=== PATIENT | female | born 1935 | race Caucasian/White ===

== ENCOUNTER 2019-01-27 18:53 | Emergency (ER) | payer MEDICARE ==
--- OUTSIDE RECORDS SUMMARY | 2019-01-27 19:02 | XMS REPORT | Continuity of Care Document ---
:1935 External Reference #:[id number] Author Name Jose Walters, OD Address [address] [place] [address] Care Team Providers Name Role Phone Tiffany Hernandez MD Care Team Information Full Stack Php Developer Unavailable Problems Active Problems Provider Date After-cataract with vision obscured following Cordell Sewell M.D. Onset: 07/2014 extraction of cataract Lens Replaced By Other Means Cordell Sewell M.D. Onset: 02/14/2014 Vitreous degeneration Cordell Sewell M.D. Onset: 09/06/2013 Nonexudative age-related macular degeneration Cordell Sewell M.D. Onset: Social History Type Date Description Comments Sex Unknown ETOH Use Denies alcohol use Tobacco Use Start: Unknown Patient has never smoked Smoking Status Reviewed: 12/15/18 Patient has never smoked Allergies, Adverse Reactions, Alerts Active Allergies Reaction Severity Comments Date Epinephrine 09/06/2013 Lidocaine 09/06/2013 Seasonal 09/06/2013 Dogs 09/06/2013 Cats 09/06/2013 Mold 09/06/2013 Medications Active Medications SIG Qnty Indications Ordering Date Provider Olopatadine HCL Place 1 Drop 2.5units Jose Walters, 11/30/2017 0.2% Into Both Eyes OD Solution Every Day Ocusoft Lid Scrub apply to outer 30units Jose Walters, 12/31/2016 Plus eyelids twice a OD Pads day both eyes Preservision Areds 2 Cordell Sewell, 09/06/2013 Rajwinder Areds 2 Capsules Tapazole Unknown Tablets Hydralazine HCL Unknown Tablets Multi Unknown Vitamin/Minerals Full Spectrum Tablets Fiber Unknown Capsules Astepro Unknown 0.15% Solution Alvesco Unknown Aerosol Xopenex HFA Unknown 45mcg/Act Aerosol Simvastatin Unknown Tablets Lexapro Unknown Tablets Aspirin Unknown Tablets Triamterene/Hydrochlo Unknown rothiazide Tablets Norvasc Unknown Tablets Lopressor Unknown Tablets Tekturna Unknown Tablets Immunizations Description No Information Available Vital Signs Date Vital Result Comment 06/14/2018 4:05pm Intraocular Pressure Right Eye 16 mmHg Intraocular Pressure Left Eye 16 mmHg 12/14/2017 3:27pm Intraocular Pressure Right Eye 17 mmHg Intraocular Pressure Left Eye 17 mmHg Results Description No Information Available Procedures Date Code Description Status 12/15/2018 70212 Oct Retina Completed 12/15/2018 37601 Eye Exam Est Intermediate Completed Medical Devices Description No Information Available Encounters Description No Information Available Assessments Date Code Description Provider 12/15/2018 H35.3132 Nonexudative age-related macular degeneration, Jose Walters, OD bilateral, in Plan of Treatment Future Appointment(s):06/15/2019 1:30 pm - Jose Walters OD at [id number] - Jose Walters, ODH35.3132 Nonexudative age-related macular degeneration, bilateral, inFollow up:6 mos full, sooner PRN Functional Status Description No Information Available Mental Status Description No Information Available Referrals Description No Information Available
--- OUTSIDE RECORDS SUMMARY | 2019-01-27 19:02 | XMS REPORT | Continuity of Care Document ---
:1935 External Reference #:[id number] Author Name Jose Walters, OD Address [address] [place] [address] Care Team Providers Name Role Phone Tiffany Hernandez MD Care Team Information Soc Analyst Unavailable Problems Active Problems Provider Date After-cataract [...] mmHg Results Description No Information Available Procedures Description No Information Available Medical Devices Description No Information Available Encounters Description No Information Available Assessments Date Code Description Provider 12/15/2018 H35.3132 Nonexudative age-related macular degeneration, Jose Walters, OD bilateral, in Plan of Treatment 12/15/2018 - Jose Walters, ODH35.3132 Nonexudative age-related macular degeneration, bilateral, inFollow up:6 mos full, sooner PRN Functional Status Description No Information Available Mental Status Description No Information Available Referrals Description No Information Available
--- OUTSIDE RECORDS SUMMARY | 2019-01-27 19:03 | XMS REPORT | Continuity of Care Document ---
:1935 External Reference #:[id number] Author Name SNEHAL Herman (transmitted by agent of provider Booker Le) Address [address] [place] [address] Care Team Providers Name Role Phone Hitesh Schneider M.D. - Family Medicine Care Team Information Follow Up Clerk Tiffany Hernandez MD Care Team Information Follow Up Clerk [phone] Problems Active Problems Provider Date Gastroesophageal reflux disease Iggy Moody M.D. Onset: 04/24/2016 Body mass index 20-24 - normal Iggy Moody M.D. Onset: 04/24/2016 Body mass index 20-24 - normal Iggy Moody M.D. Onset: 12/26/2015 Chronic obstructive lung disease Iggy Moody M.D. Onset: 12/26/2015 Mild persistent asthma Iggy Moody M.D. Onset: 12/26/2015 Moderate persistent asthma, uncomplicated Booker Le M.D. Onset: 11/27/2014 Body mass index (BMI) 24.0-24.9, adult Booker Le M.D. Onset: 11/27/2014 Measles vaccination requested Booker Le M.D. Onset: 11/27/2014 Allergic asthma without status asthmaticus Everton Wilson M.D. Onset: 12/2012 Allergic rhinitis Everton Wilson M.D. Onset: 10/20/2012 Allergic rhinitis due to pollen Everton Wilson M.D. Onset: 10/20/2012 Allergic rhinitis due to pollen Allergy Injection Onset: 11/10/2014 Allergic rhinitis Allergy Injection Onset: 11/10/2014 Allergic rhinitis due to animals Allergy Injection Onset: 11/10/2014 Allergic rhinitis Allergy Injection Onset: 11/10/2014 Social History Type Date Description Comments Sex Unknown Tobacco Use Start: Unknown Patient has never smoked Allergies, Adverse Reactions, Alerts Active Allergies Reaction Severity Comments Date Epinephrine tachycardic 11/28/2013 Flu Virus Vaccine Moderate 11/27/2014 Eggs Moderate 11/27/2014 Tamiflu GI issues 05/17/2018 Medications Active Medications SIG Qnty Indications Ordering Date Provider Spiriva Respimat take 2 puffs every 12gm J30.89 Carmelina Redmond, 12/26/2015 day Rajwinder 2.5mcg/Act Aerosol Alvesco Take 1 puff Twice 18.3units J30.1 Iggy Nunez 10/20/2012 160mcg/Act A Day Rajwinder Moody Aerosol Xopenex HFA 2 inhalations 1units Yvonne every 4 hours as SNEHAL Rodriguez 45mcg/Act Aerosol needed Tekturna HCT Unknown 300-12.5mg Tablets Lopressor Unknown 50mg Tablets Norvasc Unknown 10mg Tablets Simvastatin Unknown 10mg Tablets Lexapro Unknown 20mg Tablets Senior Multivitamin 1 po qd Unknown Tablets Aspir-[address] Calcium 600 Unknown [id number] Tablets Fiber Unknown 625mg Tablets Hydralazine HCL Take 1 Tablet By Unknown Mouth Twice A Day 25mg Tablets Methimazole Unknown 10mg Tablets Preservision Areds Unknown Capsules Fish Oil + D3 Unknown [id number] Capsules Medications Administered in Office Medication SIG Qnty Indications Ordering Provider Date Injection Allergy Injection 11/29/2018 Injection Injection Allergy Injection 11/04/2018 Injection Injection Allergy Injection 10/07/2018 Injection Injection Allergy Injection 09/09/2018 Injection Injection Allergy Injection 08/19/2018 Injection Injection Allergy Injection 07/22/2018 Injection Injection Allergy Injection 06/24/2018 Injection Injection Allergy Injection 06/10/2018 Injection Injection Allergy Injection 05/27/2018 Injection Injection Allergy Injection 05/17/2018 Injection Injection Allergy Injection 04/15/2018 Injection Injection Allergy Injection 03/18/2018 Injection Injection Allergy Injection 02/18/2018 Injection Injection Allergy Injection 01/21/2018 Injection Injection Allergy Injection 12/24/2017 Injection Injection Allergy Injection 12/03/2017 Injection Injection Allergy Injection 11/16/2017 Injection Injection Allergy Injection 10/29/2017 Injection Injection Allergy Injection 10/15/2017 Injection Injection Allergy Injection 10/01/2017 Injection Injection Allergy Injection 09/17/2017 Injection Injection Allergy Injection 09/03/2017 Injection Injection Allergy Injection 08/20/2017 Injection Injection Allergy Injection 08/07/2017 Injection Injection Allergy Injection 07/23/2017 Injection Injection Allergy Injection 07/02/2017 Injection Injection Allergy Injection 06/18/2017 Injection Injection Allergy Injection 06/04/2017 Injection Injection Allergy Injection 05/21/2017 Injection Injection Allergy Injection 04/30/2017 Injection Injection Allergy Injection 04/16/2017 Injection Injection Allergy Injection 03/26/2017 Injection Injection Allergy Injection 03/05/2017 Injection Injection Allergy Injection 02/12/2017 Injection Injection Allergy Injection 01/22/2017 Injection Injection Allergy Injection 12/11/2016 Injection Injection Allergy Injection 11/13/2016 Injection Injection Allergy Injection 10/23/2016 Injection Injection Lotus Darden M.D. 10/02/2016 Injection Injection Allergy Injection 10/02/2016 Injection Injection Allergy Injection 09/10/2016 Injection Injection Allergy Injection 08/21/2016 Injection Injection Allergy Injection 08/07/2016 Injection Injection Allergy Injection 07/17/2016 Injection Injection Allergy Injection 06/26/2016 Injection Injection Allergy Injection 06/12/2016 Injection Injection Allergy Injection 05/29/2016 Injection Injection Allergy Injection 05/21/2016 Injection Injection Allergy Injection 05/12/2016 Injection Injection Allergy Injection 04/10/2016 Injection Injection Allergy Injection 03/13/2016 Injection Injection Allergy Injection 02/28/2016 Injection Injection Allergy Injection 02/14/2016 Injection Injection Allergy Injection 01/24/2016 Injection Injection Allergy Injection 01/10/2016 Injection Injection Allergy Injection 12/26/2015 Injection Injection Allergy Injection 12/05/2015 Injection Injection Lotus Darden M.D. 10/24/2015 Injection Injection Allergy Injection 10/24/2015 Injection Injection Allergy Injection 09/12/2015 Injection Injection Allergy Injection 08/29/2015 Injection Injection Allergy Injection 08/08/2015 Injection Injection Allergy Injection 07/23/2015 Injection Injection Allergy Injection 07/06/2015 Injection Injection Allergy Injection 06/22/2015 Injection Injection Allergy Injection 06/06/2015 Injection Injection Allergy Injection 05/23/2015 Injection Injection Allergy Injection 05/09/2015 Injection Injection Allergy Injection 04/11/2015 Injection Injection Allergy Injection 03/14/2015 Injection Injection Allergy Injection 02/14/2015 Injection Injection Allergy Injection 01/12/2015 Injection Injection Allergy Injection 12/15/2014 Injection Injection Allergy Injection 11/27/2014 Injection Injection Allergy Injection 11/10/2014 Injection Injection Allergy Injection 10/20/2014 Injection Injection Allergy Injection 10/06/2014 Injection Injection Allergy Injection 09/22/2014 Injection Injection Allergy Injection 08/25/2014 Injection Injection Allergy Injection 08/07/2014 Injection Injection Allergy Injection 07/12/2014 Injection Injection Allergy Injection 06/30/2014 Injection Injection Allergy Injection 06/12/2014 Injection Injection Allergy Injection 05/29/2014 Injection Injection Allergy Injection 05/15/2014 Injection Injection Allergy Injection 04/05/2014 Injection Injection Allergy Injection 03/08/2014 Injection Injection Allergy Injection 02/06/2014 Injection Injection Allergy Injection 01/09/2014 Injection Injection Allergy Injection 12/12/2013 Injection Injection Allergy Injection 11/28/2013 Injection Injection Allergy Injection 11/11/2013 Injection Injection Allergy Injection 10/28/2013 Injection Injection Allergy Injection 10/14/2013 Injection Injection Allergy Injection 09/30/2013 Injection Injection Allergy Injection 09/16/2013 Injection Injection Allergy Injection 08/31/2013 Injection Injection Allergy Injection 08/10/2013 Injection Injection Allergy Injection 07/27/2013 Injection Injection Allergy Injection 07/13/2013 Injection Injection Allergy Injection 06/29/2013 Injection Injection Allergy Injection 06/13/2013 Injection Injection Allergy Injection 05/30/2013 Injection Injection Allergy Injection 04/22/2013 Injection Injection Allergy Injection 03/25/2013 Injection Injection Allergy Injection 03/04/2013 Injection Injection Allergy Injection 02/18/2013 Injection Injection Allergy Injection 01/28/2013 Injection Injection Allergy Injection 01/17/2013 Injection Injection Allergy Injection 01/03/2013 Injection Injection Allergy Injection 12/20/2012 Injection Injection Allergy Injection 11/26/2012 Injection Injection Allergy Injection 11/05/2012 Injection Celestdevin/Alla Wilson M.D. 10/20/2012 [id number] 1 cc Injection Injection Allergy Injection 10/20/2012 Injection Injection Allergy Injection 10/08/2012 Injection Injection Allergy Injection 09/24/2012 Injection Injection Allergy Injection 09/13/2012 Injection Injection Allergy Injection 08/11/2012 Injection Injection Allergy Injection 07/21/2012 Injection Injection Allergy Injection 07/07/2012 Injection Injection Allergy Injection 06/23/2012 Injection Injection Allergy Injection 06/09/2012 Injection Injection Allergy Injection 05/26/2012 Injection Injection Everton Katie, Rajwinder 04/09/2012 Injection Injection Everton Katie, Rajwinder 03/26/2012 Injection Injection Everton Katie, Rajwinder 03/12/2012 Injection Injection Everton Katie, Tere.DFranci 02/27/2012 Injection Injection Everton Katie, Tere.DFranci 02/09/2012 Injection Injection Everton Katie, Rajwinder 01/21/2012 Injection Injection Everton Katie, Rajwinder 01/05/2012 Injection Injection Everton Katie, Tere.Joshua 12/19/2011 Injection Injection Everton Katie, Rajwinder 12/05/2011 Injection Injection Everton Katie, Rajwinder 11/21/2011 Injection Injection Everton Katie, Rajwinder 10/31/2011 Injection Injection Everton Katie, SusanDFranci 10/20/2011 Injection Injection Everton Katie, Rajwinder 10/06/2011 Injection Injection Everton Katie, Rajwinder 09/22/2011 Injection Injection Everton Katie, Rajwinder 09/08/2011 Injection Injection Everton Katie, Rajwinder 08/15/2011 Injection Injection Everton Katie, Rajwinder 07/30/2011 Injection Injection Everton Katie, Rajwinder 07/16/2011 Injection Injection Everton Katie, Tere.DFranci 06/11/2011 Injection Injection Everton Katie, SusanDFranci 05/28/2011 Injection Injection Everton Katie, MFranciDFranci 05/14/2011 Injection Injection Everton Katie, M.DFranci 02/26/2011 Injection Injection Everton Katie, Rajwinder 02/19/2011 Injection Injection Everton Katie, Rajwinder 02/12/2011 Injection Injection Everton Katie, MRach 02/05/2011 Injection Injection Everton Katie, M.DFranci 01/22/2011 Injection Injection Everton Katie, M.DFranci 01/08/2011 Injection Injection Everton Katie, M.DFranci 12/25/2010 Injection Injection Everton Katie, M.DFranci 12/20/2010 Injection Injection Everton Katie, M.DFranci 12/13/2010 Injection Injection Everton Katie, M.DFranci 12/06/2010 Injection Injection Everton Katie, M.DFranci 11/29/2010 Injection Injection Everton Katie, M.DFranci 11/22/2010 Injection Injection Everton Katie, M.DFranci 11/15/2010 Injection Injection Everton Katie, M.DFranci 10/30/2010 Injection Injection Everton Aktie, M.DFranci 10/23/2010 Injection Injection Everton Katie, M.DFranci 10/16/2010 Injection Injection Everton Katie, M.DFranci 10/09/2010 Injection Injection Everton Katie, M.DFranci 10/02/2010 Injection Injection Everton Katie, M.DFranci 09/25/2010 Injection Injection Everton Katie, M.DFranci 09/18/2010 Injection Injection Everton Katie, M.DFranci 09/11/2010 Injection Injection Everton Katie, M.DFranci 09/02/2010 Injection Injection Everton Katie, M.DFranci 08/23/2010 Injection Injection Everton Katie, M.DFranci 08/14/2010 Injection Injection Everton Katie, M.DFranci 08/07/2010 Injection Injection Everton Katie, M.DFranci 08/02/2010 Injection Injection Everton Katie, M.DFranci 07/26/2010 Injection Injection Everton Katie, M.DFranci 07/19/2010 Injection Injection Everton Katie, M.DFranci 07/10/2010 Injection Injection Everton Katie, M.DFranci 02/18/2010 Injection Injection Everton Katie, M.DFranci 01/21/2010 Injection Injection Everton Katie, M.DFranci 12/24/2009 Injection Injection Everton Katie, M.DFranci 11/26/2009 Injection Injection Everton Katie, M.DFranci 11/14/2009 Injection Injection Everton Katie, M.DFranci 10/31/2009 Injection Injection Everton Katie, M.DFranic 10/17/2009 Injection Injection Everton Katie, M.DFranci 10/05/2009 Injection Injection Everton Katie, M.DFranci 09/21/2009 Injection Injection Everton Katie, M.DFranci 09/07/2009 Injection Injection Everton Katie, M.DFranci 08/20/2009 Injection Injection Everton Katie, M.DFranci 08/06/2009 Injection Injection Everton Katie, M.DFranci 07/16/2009 Injection Injection Everton Katie, M.DFranci 06/29/2009 Injection Injection Everton Katie, M.DFranci 06/18/2009 Injection Injection Everton Katie, M.DFranci 06/04/2009 Injection Injection Everton Katie, M.DFranci 05/21/2009 Injection Injection Everton Katie, SusanDFranci 04/23/2009 Injection Injection Everton Katie, SusanDFranci 03/26/2009 Injection Injection Rafael Rodriguez, Rajwinder 03/05/2009 Injection Injection Everton Katie, M.DFranci 02/12/2009 Injection Injection Everton Katie, M.DFranci 01/24/2009 Injection Injection Everton Katie, M.DFranci 01/10/2009 Injection Injection Everton Katie, M.DFranci 12/27/2008 Injection Injection Everton Ktaie, M.DFranci 12/13/2008 Injection Injection Everton Katie, M.DFranci 11/22/2008 Injection Injection Everton Katie, M.DFranci 11/06/2008 Injection Injection Everton Katie, M.DFranci 10/23/2008 Injection Injection Everton Katie, M.DFranci 10/09/2008 Injection Injection Everton Katie, M.DFranci 09/13/2008 Injection Injection Everton Katie, M.DFranci 08/30/2008 Injection Injection Everton Katie, M.DFranci 08/02/2008 Injection Injection Everton Katie, M.DFranci 07/19/2008 Injection Injection Everton Katie, M.D. 07/05/2008 Injection Injection Everton Katie, M.DFranci 05/31/2008 Injection Injection Everton Katie, M.DFranci 05/17/2008 Injection Injection Everton Katie, M.D. 03/01/2008 Injection Injection Everton Katie, M.DFranci 02/18/2008 Injection Injection Everton Katie, M.DFranci 01/26/2008 Injection Injection Everton Katie, M.DFranci 01/12/2008 Injection Injection Everton Katie, M.DFranci 12/29/2007 Injection Injection Everton Katie, M.DFranci 12/15/2007 Injection Injection Everton Katie, M.DFranci 12/01/2007 Injection Injection Everton Katie, M.DFranci 11/17/2007 Injection Injection Everton Katie, M.DFranci 11/03/2007 Injection Injection Everton Katie, M.DFranci 10/13/2007 Injection Injection Everton Katie, Tere.DFranci 09/15/2007 Injection Injection Everton Katie, M.DFranci 09/03/2007 Injection Injection Everton Katie, M.DFranci 08/20/2007 Injection Injection Everton Katie, M.DFranci 08/06/2007 Injection Injection Everton Katie, M.DFranci 07/21/2007 Injection Injection Everton Katie, M.DFranci 07/07/2007 Injection Injection Everton Katie, M.DFranci 06/25/2007 Injection Injection Everton Katie, M.DFranci 06/14/2007 Injection Injection Everton Katie, M.DFranci 06/02/2007 Injection Injection Everton Katie, M.DFranci 05/19/2007 Injection Injection Everton Katie, M.DFranci 02/24/2007 Injection Injection Everton Katie, M.DFranci 02/12/2007 Injection Injection Everton Katie, M.DFranci 01/18/2007 Injection Injection Everton Katie, M.DFranci 12/21/2006 Injection Injection Everton Katie, M.DFranci 12/14/2006 Injection Injection Everton Katie, M.DFranci 12/04/2006 Injection Injection Everton Katie, M.DFranci 11/27/2006 Injection Injection Everton Katie, M.DFranci 11/20/2006 Injection Injection Everton Katie, M.DFranci 11/13/2006 Injection Injection Everton Katie, M.DFranci 10/30/2006 Injection Injection Everton Katie, M.DFranci 10/23/2006 Injection Injection Everton Katie, M.DFranci 08/24/2006 Injection Injection Everton Katie, M.DFranci 08/10/2006 Injection Injection Everton Katie, M.DFranci 07/31/2006 Injection Injection Everton Katie, M.DFranci 07/17/2006 Injection Injection Everton Katie, M.DFranci 07/03/2006 Injection Injection Everton Katie, Tere.DFranci 06/24/2006 Injection Injection Everton Katie, Tere.DFranci 06/12/2006 Injection Injection Everton Katie, Tere.DFranci 05/29/2006 Injection Injection Everton Katie, Tere.DFranci 05/20/2006 Injection Injection Everton Katie, Tere.DFranci 02/20/2006 Injection Injection Everton Katie, Tere.DFranci 02/11/2006 Injection Injection Everton Katie, M.DFranci 01/28/2006 Injection Injection Everton Katie, Tere.DFranci 01/14/2006 Injection Injection Everton Katie, Tere.DFranci 12/31/2005 Injection Injection Everton Katie, M.DFranci 12/17/2005 Injection Injection Everton Katie, M.DFranci 12/01/2005 Injection Injection Everton Katie, Tere.DFranci 11/19/2005 Injection Injection Everton Katie, M.DFranci 11/07/2005 Injection Injection Everton Katie, M.DFranci 10/10/2005 Injection Injection Everton Katie, M.DFranci 09/29/2005 Injection Injection Everton Katie, M.DFranci 09/10/2005 Injection Injection Everton Katie, M.DFranci 08/29/2005 Injection Injection Everton Katie, M.DFranci 08/18/2005 Injection Injection Everton Katie, M.DFranci 08/04/2005 Injection Injection Everton Katie, M.DFranci 05/07/2005 Injection Injection Everton Katie, M.DFranci 04/23/2005 Injection Injection Everton Katie, M.D. 04/09/2005 Injection Injection Everton Katie, M.D. 03/26/2005 Injection Injection Everton Katie, M.D. 03/12/2005 Injection Injection Everton Katie, M.D. 02/26/2005 Injection Injection Everton Katie, M.D. 02/12/2005 Injection Injection Everton Katie, M.D. 01/27/2005 Injection Injection Everton Katie, M.D. 01/10/2005 Injection Injection Everton Katie, M.D. 12/09/2004 Injection Injection Everton Katie, M.D. 11/11/2004 Injection Injection Everton Katie, M.D. 10/23/2004 Injection Injection Everton Katie, M.D. 10/11/2004 Injection Injection Everton Katie, M.D. 09/27/2004 Injection Injection Everton Katie, M.D. 09/11/2004 Injection Injection Everton Katie, M.D. 08/26/2004 Injection Injection Everton Katie, M.D. 08/09/2004 Injection Injection Everton Katie, M.D. 07/26/2004 Injection Injection Everton Katie, M.D. 07/12/2004 Injection Injection Everton Katie, M.D. 06/28/2004 Injection Injection Everton Katie, M.D. 06/14/2004 Injection Injection Everton Katie, M.D. 05/31/2004 Injection Injection Everton Katie, M.D. 05/17/2004 Injection Injection Veerton Katie, M.D. 02/23/2004 Injection Injection Everton Katie, M.D. 02/14/2004 Injection Injection Everton Katie, M.D. 01/29/2004 Injection Injection Everton Katie, M.D. 01/01/2004 Injection Injection Everton Katie, M.D. 12/04/2003 Injection Injection Everton Katie, M.D. 11/17/2003 Injection Injection Everton Katie, M.D. 11/01/2003 Injection Injection Everton Katie, M.D. 10/09/2003 Injection Injection Everton Katie, M.D. 09/25/2003 Injection Injection Everton KatieRajwinder wilson 09/11/2003 Injection Injection Everton Katie, Rajwinder 08/28/2003 Injection Injection Everton KatieRajwinder wilson 08/14/2003 Injection Injection Everton KatieRajwinder wilson 07/31/2003 Injection Injection Everton KatieRajwinder wilson 07/14/2003 Injection Injection Everton KatieRajwinder wilson 07/03/2003 Injection Injection Everton Katie, Rajwinder 06/19/2003 Injection Injection Everton Katie, Rajwinder 06/05/2003 Injection Injection Everton KatieRajwinder wilson 05/22/2003 Injection Injection Everton KatieRajwinder wilson 03/24/2003 Injection Injection Everton KatieRajwinder wilson 02/17/2003 Injection Injection Everton Rajwinder Wilson 01/20/2003 Injection Injection Everton Rajwinder Wilson 12/23/2002 Injection Injection Everton Rajwinder Wilson 12/09/2002 Injection Injection Everton Rajwinder Wilson 11/25/2002 Injection Injection Everton Rajwinder Wilson 10/24/2002 Injection Injection Everton Rajwinder Wilson 10/07/2002 Injection Injection Everton Rajwinder Wilson 09/28/2002 Injection Injection Evertonshabana Wilson M.D. 09/12/2002 Injection Immunizations CPT Code Status Date Vaccine Lot # [id number] Given Unknown Pneumococcal Vaccine 87362 Given Unknown Pneumococcal Vaccine 18585 Given Unknown Pneumococcal Vaccine Vital Signs Date Vital Result Comment 05/17/2018 11:30am Height 63 inches 5'3" Weight 136.00 lb Weight 61.690 kg Respiratory Rate 24 /min Heart Rate 58 /min O2 % BldC Oximetry 98 % BP Systolic 130 mmHg BP Diastolic 68 mmHg Asthma Control Test 25 Fractional Exhaled Nitric Oxide 8 BMI (Body Mass Index) 24.1 kg/m2 11/16/2017 1:35pm Height 63 inches 5'3" Weight 133.00 lb Weight 60.329 kg Respiratory Rate 16 /min Heart Rate 63 /min O2 % BldC Oximetry 96 % BP Systolic 124 mmHg BP Diastolic 76 mmHg Asthma Control Test 25 BMI (Body Mass Index) 23.6 kg/m2 Results Description No Information Available Procedures Date Code Description Status 11/29/2018 34508 Injection Completed 11/29/2018 10518 Pre PFT Completed 11/04/2018 27515 Injection Completed 10/07/2018 95664 Injection Completed 09/09/2018 46472 Injection Completed 08/19/2018 88018 Injection Completed 07/22/2018 60268 Injection Completed 06/24/2018 42036 Injection Completed 06/10/2018 64994 Injection Completed Medical Devices Description No Information Available Encounters Type Date Location Provider Dx Diagnosis Office Visit 11/29/2018 Natalie Rodriguez, J30.1 Allergic rhinitis due 10:20a CLINICAL DIRECTOR-C to pollen J30.2 Other seasonal allergic rhinitis J30.81 Allergic rhinitis due to animal (cat) (dog) hair and dander J30.89 Other allergic rhinitis J45.30 Mild persistent asthma, uncomplicated Assessments Date Code Description Provider 11/29/2018 J30.1 Allergic rhinitis due to pollen Lotus Darden M.D. 11/29/2018 J30.1 Allergic rhinitis due to pollen Lotus Darden M.D. 11/29/2018 J30.2 Other seasonal allergic rhinitis Lotus Darden M.D. 11/29/2018 J30.1 Allergic rhinitis due to pollen Yvonneluana Rodriguez, CLINICAL DIRECTOR-C 11/29/2018 J30.81 Allergic rhinitis due to animal (cat) (dog) Lotus Darden M.D. hair and dander 11/29/2018 J30.2 Other seasonal allergic rhinitis Lotus Darden M.D. 11/29/2018 J30.89 Other allergic rhinitis Lotus Darden M.D. 11/29/2018 J30.2 Other seasonal allergic rhinitis Yvonne Uldrich, CLINICAL DIRECTOR-C 11/29/2018 J30.81 Allergic rhinitis due to animal (cat) (dog) Lotus Darden M.D. hair and dander 11/29/2018 J30.81 Allergic rhinitis due to animal (cat) (dog) Yvonne Jennifer, CLINICAL DIRECTOR-C hair and dander 11/29/2018 J30.89 Other allergic rhinitis Lotus Darden M.D. 11/29/2018 J30.89 Other allergic rhinitis Yvonne Rodriguez, [facility] 11/29/2018 J45.30 Mild persistent asthma, uncomplicated Yvonne Rodriguez, [facility] 11/29/2018 J30.1 Allergic rhinitis due to pollen Allergy Injection 11/29/2018 J30.2 Other seasonal allergic rhinitis Allergy Injection 11/29/2018 J30.81 Allergic rhinitis due to animal (cat) (dog) Allergy Injection hair and dander 11/29/2018 J30.89 Other allergic rhinitis Allergy Injection 11/04/2018 J30.1 Allergic rhinitis due to pollen Lotus Darden M.D. 11/04/2018 J30.1 Allergic rhinitis due to pollen Allergy Injection 11/04/2018 J30.2 Other seasonal allergic rhinitis Lotus Darden M.D. 11/04/2018 J30.2 Other seasonal allergic rhinitis Allergy Injection 11/04/2018 J30.81 Allergic rhinitis due to animal (cat) (dog) Lotus Darden M.D. hair and dander 11/04/2018 J30.81 Allergic rhinitis due to animal (cat) (dog) Allergy Injection hair and dander 11/04/2018 J30.89 Other allergic rhinitis Lotus Darden M.D. 11/04/2018 J30.89 Other allergic rhinitis Allergy Injection 10/07/2018 J30.1 Allergic rhinitis due to pollen Lotus Darden M.D. 10/07/2018 J30.1 Allergic rhinitis due to pollen Allergy Injection 10/07/2018 J30.2 Other seasonal allergic rhinitis Lotus Darden M.D. 10/07/2018 J30.2 Other seasonal allergic rhinitis Allergy Injection 10/07/2018 J30.81 Allergic rhinitis due to animal (cat) (dog) Lotus Darden M.D. hair and dander 10/07/2018 J30.81 Allergic rhinitis due to animal (cat) (dog) Allergy Injection hair and dander 10/07/2018 J30.89 Other allergic rhinitis Lotus Darden M.D. 10/07/2018 J30.89 Other allergic rhinitis Allergy Injection 09/09/2018 J30.1 Allergic rhinitis due to pollen Lotus Darden M.D. 09/09/2018 J30.1 Allergic rhinitis due to pollen Allergy Injection 09/09/2018 J30.2 Other seasonal allergic rhinitis Lotus Darden M.D. 09/09/2018 J30.2 Other seasonal allergic rhinitis Allergy Injection 09/09/2018 J30.81 Allergic rhinitis due to animal (cat) (dog) Lotus Darden M.D. 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 09/09/2018 J30.89 Other allergic rhinitis Allergy Injection 08/19/2018 J30.1 Allergic rhinitis due to pollen Lotus Darden M.D. 08/19/2018 J30.1 Allergic rhinitis due to pollen Allergy Injection 08/19/2018 J30.2 Other seasonal allergic rhinitis Lotus Darden M.D. 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 08/19/2018 J30.89 Other allergic rhinitis Allergy Injection 07/22/2018 J30.1 Allergic rhinitis due to pollen Lotus Darden M.D. 07/22/2018 J30.1 Allergic rhinitis due to pollen Allergy Injection 07/22/2018 J30.2 Other seasonal allergic rhinitis Lotus Darden M.D. 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 07/22/2018 J30.89 Other allergic rhinitis Allergy Injection 06/24/2018 J30.1 Allergic rhinitis due to pollen Lotus Darden M.D. 06/24/2018 J30.1 Allergic rhinitis due to pollen Allergy Injection 06/24/2018 J30.2 Other seasonal allergic rhinitis Lotus Darden M.D. 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 06/24/2018 J30.89 Other allergic rhinitis Allergy Injection 06/10/2018 J30.1 Allergic rhinitis due to pollen Lotus Darden M.D. 06/10/2018 J30.1 Allergic rhinitis due to pollen Allergy Injection 06/10/2018 J30.2 Other seasonal allergic rhinitis Lotus Darden M.D. 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 06/10/2018 J30.89 Other allergic rhinitis Allergy Injection Plan of Treatment Future Appointment(s):12/30/2018 11:00 am - Allergy Injection at [id number] 11:00 am - SNEHAL Herman at [id number]/02/2018 12:45 pm - Allergy Injection at [id number]/29/2018 - MATEO Herman-[id number] Allergic rhinitis due to fkjdwnY33.2 Other seasonal allergic kerihthsD96.81 Allergic rhinitis due to animal (cat) (dog) hair and lcaridN87.89 Other allergic gsyeikhfI92.30 Mild persistent asthma, uncomplicatedFollow up:6 months with ENORecommendations: Continue all medications as prescribed.Refrain from wearing perfumes/scented colognes while visitingour office. Continue the Alvesco 1 inhalation twice a day Spiriva 2 puffs daily Continue the Xopenex every 4 hours as needed for cough, shortness of breath, chest tightness or wheezing.Monitor Albuterol use. If using more than 2x/week, please call the office as your asthma medications may need to be adjusted. Continue the IT as tolerated Functional Status Description No Information Available Mental Status Description No Information Available Referrals Description No Information Available
[2019-01-27 19:10] VITALS: BP 163/73
[2019-01-27] MEDS ORDERED: Levalbuterol 0.63MG/3ML NEB* UNIT OF USE INH ONE (19:30)
[2019-01-27] MEDS ORDERED: Acetaminophen TAB* 325 MG PO ONE (19:30)
--- NOTE | 2019-01-27 19:33 | UC ---
Respiratory Complaint HPI - HPI Summary HPI Summary: 83-year-old woman comes in with chief been 3 days of upper respiratory tract infection symptoms. She started initially with a runny nose sore throat. She' s gradually progressed to cough chest congestion. She was seen in her primary care doctor [place] today who said that she has congestion in her chest and she' s been taking [id number] medicines which to loosen up the congestion however patient's getting worse with more shortness breath and now she is having fevers. Showed a fever of 101 at home. Has not taken any over-the- counter antipyretics. She does have a history of COPD and asthma. Albuterol tends to make her heart race since she uses Xopenex for her rescue inhaler. - History of Current Complaint Chief Complaint: UCRespiratory Stated Complaint: FEVER, COUGH Time Seen by Provider: 01/27/19 19:18 Pain Intensity: 3 - Allergies/Home Medications Allergies/Adverse Reactions: Allergies Allergy/AdvReac Type Severity Reaction Status Date / Time MS Chlorpheniramine Allergy Severe Palpitation Verified 01/27/19 19:11 [From Decongestant-At] s MS Codeine Allergy Severe Palpitation Verified 01/27/19 19:11 [From Decongestant-At] s MS Phenylpropanolamine Allergy Severe Palpitation Verified 01/27/19 19:11 [From Decongestant-At] s MS Epinephrine [Epinephrine] Allergy Intermediate PALPATATION Verified 01/27/19 19:11 S FLU VACCINE Allergy Severe DIFF. Uncoded 01/27/19 19:11 BREATHING Home Medications: Home Medications Escitalopram Oxalate [Lexapro 10 mg] 20 mg PO DAILY 01/27/19 [History Confirmed 01/27/19] PMH/Surg Hx/FS Hx/Imm Hx Previously Healthy: Yes Cardiovascular History: Hypertension Respiratory History: COPD, Asthma Other History Of: Anticoagulant Therapy - asa 81 qhs - Surgical History Surgical History: Yes Surgery Procedure, Year, and Place: TUBAL LIGATION, 1972, [facility]/C X2, 1980S, [facility] , 2RENAL ARTERY STENTS RT SIDE, ONE LEFT RENAL ARTERY STENT PLACEMENT. PT UNSURE OF DATE OF THE STENT [id number] AND RIGHT CATARACT REMOVED cholecstectomy 2011 - Social History Alcohol Use: None Substance Use Type: None Smoking Status (MU): Never Smoked Tobacco Review of Systems All Other Systems Reviewed And Are Negative: Yes Constitutional: Positive: Fever, Chills, Fatigue, Other - SEE HPI Skin: Positive: Negative Eyes: Positive: Negative ENT: Positive: Sore Throat, Nasal Discharge, Sinus Congestion, Sinus Pain/ Tenderness Respiratory: Positive: Shortness Of Breath, Cough, Other - SEE HPI Cardiovascular: Positive: Negative Gastrointestinal: Positive: Negative Motor: Positive: Negative Neurovascular: Positive: Negative Musculoskeletal: Positive: Negative Neurological: Positive: Headache Psychological: Positive: Negative Is Patient Immunocompromised?: No Physical Exam Triage Information Reviewed: Yes Appearance: No Pain Distress, Well-Nourished, Ill-Appearing - MILD Vital Signs: Initial Vital Signs Temp 100.9 F 01/27/19 19:05 Pulse 87 01/27/19 19:05 Resp 18 01/27/19 19:05 BP 163/73 01/27/19 19:05 Pulse Ox 98 01/27/19 19:05 Vital Signs Reviewed: Yes Eye Exam: Normal Eyes: Positive: Conjunctiva Clear ENT: Positive: Pharyngeal erythema, Nasal congestion, Nasal drainage, TMs normal Neck: Positive: Supple Respiratory: Positive: No respiratory distress, No accessory muscle use, Rhonchi Cardiovascular: Positive: RRR Musculoskeletal: Positive: Strength Intact, ROM Intact Neurological: Positive: Alert Psychological: Positive: Normal Response To Family, Age Appropriate Behavior Skin Exam: Normal Respiratory Course/Dx - Course Course Of Treatment: I discussed the x-rays with the patient and her daughter. I do not see any infiltrates at this time. Radiologist reading is pending. Patient does feel improved in clinic after Xopenex nebulizer and acetaminophen. We discussed viral versus bacterial infections and the role of antibiotics. With the patient having the fever and shortness of breath we decided to start an antibiotic at this time. I discussed that the radiologist reading is pending and that we will call them if there is any discrepancy in the read of the x- ray. I also let them know doxycycline will treat either the bronchitis or a pneumonia so that if the radiologist does see a pneumonia there will be no need to change the antibiotic. Patient does have sinus pressure so will diagnosis sinusitis and also bronchitis. She will use her Xopenex at home as needed. Also discussed using acetaminophen to help with the headache and fevers. Patient has a follow-up scheduled with her primary care doctor for tomorrow January 28, 2019. I recommended she keep that appointment for reevaluation and further connection with her primary care doctor so that they could better help her with this illness especially over the weekend. Also let the patient and her daughter know that if the patient got worse that she should go to the emergency department. - Differential Dx/Diagnosis Provider Diagnosis: Sinusitis, Bronchitis Discharge ED - Sign-Out/Discharge Documenting (check all that apply): Patient Departure All imaging exams completed and their final reports reviewed: No - Discharge Plan Condition: Stable Disposition: HOME Prescriptions: DOXYcycline CAP(*) [DOXYcycline 100MG CAP(*)] 100 mg PO BID #19 cap Patient Education Materials: Sinusitis (ED), Acute Bronchitis (ED) Referrals: Tiffany Hernandez MD [Primary Care Provider] - Additional Instructions: FOLLOW UP WITH YOUR DOCTOR TOMORROW 01/28/19 SCHEDULED. Use your Xopenex inhaler 2 puffs every 4 hours as needed. Take acetaminophen 650 mg every 4 hours as needed or 975 mg 1000 mg every 6 hours as needed. The maximum daily dosing for acetaminophen is a total of 3000 mg. GO TO THE EMERGENCY DEPARTMENT WORSE OR ANY QUESTIONS OR CONCERNS. - Billing Disposition and Condition Condition: STABLE Disposition: Home
[2019-01-27 20:06] LABS: Influenza A Molecular NEGATIVE (Negative); Influenza B Molecular NEGATIVE (Negative)
[2019-01-27] MEDS ORDERED: DOXYcycline CAP(*) 100 MG PO ONE (20:34)
--- NOTE | 2019-01-28 15:38 | UC ---
- Progress Note Progress Note: wet read correct Course/Dx - Diagnoses Provider Diagnoses: Sinusitis, Bronchitis Discharge ED - Sign-Out/Discharge Documenting (check all that apply): Post-Discharge Follow Up All imaging exams completed and their final reports reviewed: Yes - Discharge Plan Condition: Stable Disposition: HOME Prescriptions: DOXYcycline CAP(*) [DOXYcycline 100MG CAP(*)] 100 mg PO BID #19 cap Patient Education Materials: Sinusitis (ED), Acute Bronchitis (ED) Referrals: Tiffany Hernandez MD [Primary Care Provider] - Additional Instructions: FOLLOW UP WITH YOUR DOCTOR TOMORROW 01/28/19 SCHEDULED. Use your Xopenex inhaler 2 puffs every 4 hours as needed. Take acetaminophen 650 mg every 4 hours as needed or 975 mg 1000 mg every 6 hours as needed. The maximum daily dosing for acetaminophen is a total of 3000 mg. GO TO THE EMERGENCY DEPARTMENT WORSE OR ANY QUESTIONS OR CONCERNS. - Billing Disposition and Condition Condition: STABLE Disposition: Home
== END 2019-01-27 20:43 | disposition home or self-care (01) ==
LOC: UCEAST 18:53
DX: J32.9 Chronic sinusitis, unspecified (principal); J40 Bronchitis, not specified as acute or chronic; J44.9 Chronic obstructive pulmonary disease, unspecified; I10 Essential (primary) hypertension; J02.9 Acute pharyngitis, unspecified; Z79.01 Long term (current) use of anticoagulants; Z79.899 Other long term (current) drug therapy; Z88.8 Allergy status to other drugs, medicaments and biological substances; Z88.5 Allergy status to narcotic agent
CPT/HCPCS: 71046; 87651; 99213; A9270-GY; G0463